=== PATIENT | male | born 1970 | race Caucasian/White ===

== ENCOUNTER 2017-09-07 19:04 | Emergency (ER) | payer BC ==
[~2017-09-07] VITALS: Ht 172.7 cm; Wt 81.8 kg
[2017-09-07] MEDS ORDERED: PERCOCET 325 MG1 TA2 PO (20:47)
[2017-09-07] MEDS ORDERED: CEPHALEXIN500 M1 PO (20:47)
[2017-09-07 20:48] VITALS: BP 164/98
== END 2017-09-07 20:48 | disposition home or self-care (01) ==
LOC: ED 19:04
DX: S61.310A Laceration without foreign body of right index finger with damage to nail, initial encounter (principal); Z23 Encounter for immunization; W31.2XXA Contact with powered woodworking and forming machines, initial encounter; Y92.009 Unspecified place in unspecified non-institutional (private) residence as the place of occurrence of the external cause
CPT/HCPCS: 90715; A4550; A4649; J1885